=== PATIENT | female | born 1970 | race African-American/Black ===

== ENCOUNTER → 2018-05-21 | Outpatient (CLI) | payer OTHER ==
[~2018-05-21] MED LIST: IOHEXOL 240 MG/ML 50ML VIAL. PO ONE; IOHEXOL 300 MG/ML 100ML VIAL. IV ONE; PROP80CA3 PO
--- NOTE | 2018-05-21 16:35 | KCIC ---
CT study abdomen and pelvis with contrast Clinical indications: Abdominal pain. Change in bowel habits. Ulcerative colitis. TECHNIQUE: After IV infusion of 100 cc of Omnipaque 300, helical CT scanning of the abdomen and pelvis was performed. GI contrast was administered per mouth. PQRS compliance Statement One or more of the following individualized dose reduction techniques were utilized for this study: 1. Automated exposure control 2. Adjustment of the mA and/or kV according to patient size 3. Use of iterative reconstruction technique COMPARISON: None available. FINDINGS: Small indeterminate subcentimeter nodules of both lobes of liver are seen. Spleen is not enlarged. Pancreas is unremarkable. The gallbladder is normal. No extrahepatic biliary ductal dilatation is seen. No adrenal mass is evident. Both kidneys are normal. No focal aneurysmal dilatation of the abdominal aorta is seen. No enlarged abdominal or pelvic lymphadenopathy is seen. A small hiatal hernia is evident. No obstructive bowel pattern is seen. There is mild fecal retention throughout the colon. The appendix is normal. No bowel wall thickening is evident. The terminal ileum is unremarkable. No obstructive bowel pattern is seen. No free air or free fluid or mesenteric edema is seen. No lytic process is seen. No lung base consolidation is evident. IMPRESSION: No acute abnormality of the abdomen or pelvis. Small indeterminate subcentimeter nodules of the liver are seen. If there is no history of primary malignancy, these most likely represent small cysts or hemangiomas. Electronically signed by: Giancarlo Monsivais MD (05/21/2018 4:32 PM) [id number]
== END | disposition home or self-care (01) ==
LOC: KCIC CT 08:36
PROVIDERS: ATTEND Internal Medicine Gastroenterology
DX: K51.90 Ulcerative colitis, unspecified, without complications (principal); R19.4 Change in bowel habit; R10.84 Generalized abdominal pain; I10 Essential (primary) hypertension; Z88.5 Allergy status to narcotic agent; Z88.8 Allergy status to other drugs, medicaments and biological substances
CPT/HCPCS: 74177; Q9966; Q9967